=== PATIENT | male | born 1985 | race Caucasian/White ===

== ENCOUNTER 2020-01-27 21:03 | Emergency (ER) | payer OTHER ==
[~2020-01-27] VITALS: Ht 165.1 cm; Wt 59.0 kg
[~2020-01-27 21:03] MED LIST: KEFLEX500 MG PO; VICODIN 5-5001 EACH PO
[2020-01-27] MEDS ORDERED: WELLBUTRIN XL300 MG PO (21:09)
[2020-01-27 21:58] LABS: HEMOGLOBIN 15.4 gm/dL (14.0-18.0); NUCLEATED RBCS 0 /100WBC
[2020-01-27 21:59] LABS: ABSOLUTE BASOPHILS 0.1 thou/uL (0.0-0.2); ABSOLUTE MONOCYTES 0.4 thou/uL (0.0-1.2); ABSOLUTE NEUTROPHILS 8.5 thou/uL (1.6-8.1); BASOPHILS 0.7 %; EOSINOPHILS 0.3 %; HEMATOCRIT 44.3 % (42.0-52.0); LYMPHOCYTES 10.1 %; MCHC 34.8 g/dL (28.0-37.0); MONOCYTES 4.1 %; PLATELET COUNT* 223 thou/uL (150-400); POLYS 84.8 %; RBC 4.82 mil/uL (4.50-6.00); RDW-CV 15.6 % (10.5-14.5); WBC 10.1 thou/uL (4.0-11.0)
[2020-01-27 22:03] LABS: URINE BILIRUBIN NEGATIVE (Negative); URINE BLOOD TRACE (Negative); URINE CLARITY CLEAR; URINE COLOR YELLOW; URINE GLUCOSE-RANDOM NEGATIVE (Negative); URINE KETONES NEGATIVE (Negative); URINE LEUKOCYTES-REFLEX NEGATIVE (Negative); URINE NITRITE-REFLEX NEGATIVE (Negative); URINE PROTEIN NEGATIVE (Negative); URINE UROBILINOGEN 0.2 E.U./dl (0.2-1.0)
[2020-01-27 22:06] LABS: CALCIUM 9.2 mg/dL (8.5-10.1); CREATININE 1.5 mg/dL (0.6-1.3); POTASSIUM 4.2 mmol/L (3.5-5.1)
[2020-01-27 22:10] LABS: ALBUMIN 4.2 g/dL (3.4-5.0); TOTAL BILIRUBIN 0.4 mg/dL (<0.1-1.0)
[2020-01-27 22:18] LABS: AMP/METHAMP Negative (Negative); BARBITURATES Negative (Negative); BENZODIAZEPINES Negative (Negative); COCAINE Negative (Negative); METHADONE Negative (Negative); OPIATES Negative (Negative); PCP Negative (Negative); THC Negative (Negative)
[2020-01-27 22:26] LABS: SALICYLATE < 2.8 mg/dL (2.8-20.0)
[2020-01-27 22:30] LABS: ACETAMINOPHEN < 2 ug/mL (10-30)
--- NOTE | 2020-01-28 15:29 | EKG ---
[place] [address] ELECTROCARDIOGRAM REPORT Name: NATALY SNIDER Room: [facility]#: [id number] Admission: 01/27/20 Attend Phys: Discharge: Date of : 83 Date of Service: 01/28/20 1039 Report #: [id number] THIS REPORT FOR: //name// [facility] ED Test Date: 2020-01-28 Test Time: 10:39:02 Pat Name: NATALY SNIDER Department: Room: Gender: Enrollment Eligibility Representative: [facility] : 1985 Requested By: Ambrocio Loyd Order Number: [id number] MD: Luis Rodriguez Measurements Intervals [place] Rate: 68 P: 79 [place]: 158 QRS: 87 QRSD: 94 T: 45 QT: 371 QTc: 395 Interpretive Statements Sinus rhythm Consider left ventricular hypertrophy ST elev, probable normal early repol pattern No previous ECG available for comparison Electronically Signed On 01-28-2020 15:29:43 CDT by Luis Rodriguez [email or web address] <ELECTRONICALLY SIGNED> By: Luis Rodriguez MD, [facility] 01/28/20 1529 1039 103 Luis Rodriguez MD, FACC /EPI
[2020-01-29 01:00] VITALS: BP 104/69
== END 2020-01-29 01:00 | disposition still patient (30) ==
LOC: M.ERS 21:03
PROVIDERS: Emergency Medicine
DX: R45.851 Suicidal ideations (principal); Z20.828 Contact with and (suspected) exposure to other viral communicable diseases; Z79.899 Other long term (current) drug therapy